=== PATIENT | female | born 1950 | race Caucasian/White ===

== ENCOUNTER 2016-11-19 11:10 | Emergency (ER) | payer OTHER ==
--- NOTE | 2016-11-19 12:32 | ED NURSING NOTES ---
Clinical Report - Nurses [facility] [address] [place] [address] 11/19/2016 11:12 [id number] Triage time 11:12 Nov 19 2016. Acuity: LEVEL 3. Chief Complaint: ALLERGIC REACTION. Alert. VEDA COMA SCORE: [place] Coma Scale: 15- eyes open spontaneously (4); best verbal response- oriented x 4 (5); best motor response- obeys commands (6). --11:30 Davie Chavira R.N. 11:15 11/19/16. BP: 170/94. HR: 76. RR: 16. O2 saturation: 97% on room air. Temp: 98.2 F. Pain level now: 0/10. --11:30 Davie Chavira R.N. Weight: 92 kg stated. Height/Length: 68 inches Per Patient. BMI: 30.8. --11:23 Davie Chavira R.N. Medications Citalopram Hydrobromide Oral (Tablet 20 mg) 1 tablet, daily. --11:23 Davie Chavira R.N. Allergies Dilaudid. Definite Severe (Rapid HR and chest pressure) --11:22 Davie Chavira R.N. Medication/allergy information source: the patient. --11:30 Davie Chavira R.N. History Arrived by EMS. Historian: EMS and patient. Unaccompanied. Primary physician (Pal). ( Given eye gtts in eye clinic and developed a reaction in 5-10 minutes. Eye gtts given were Phenylephrine Hydrochloride 2.5% (dilator) and Topicamide 1% (dilator) and Proparacaine Hydrochloride 0.5%. Eyes were flushed at the onset of symptoms.). This started just prior to arrival. ( Flushed, throat tightened). Treatment ANIMAL BIOLOGIST: (Benadryl 25mg, Decadron 8mg, Ranitidine 100mg and Zofran 4mg IVP given as soon as an IV was started.). PAST MEDICAL HX: Negative. The patient is post-menopausal. SOCIAL HX: Former smoker, end date 2002. No alcohol use or drug use. No infectious disease exposure. ABUSE ASSESSMENT: No report of abuse. FALL RISK ASSESSMENT: Fall risk assessment completed. No fall risk identified. NUTRITIONAL RISK ASSESSMENT: The nutritional risk assessment revealed no deficiencies. FUNCTIONAL ASSESSMENT: Functional assessment: no impairments noted. LEARNING NEEDS ASSESSMENT: The learning needs assessment revealed no barriers. SKIN INTEGRITY ASSESSMENT: Skin integrity risk assessment completed. No skin integrity risk identified. --11:30 Davie Chavira R.N. PROBLEMS: no known problems. ADDITIONAL SURGERIES: Breast Lumpectomy. Cholecystectomy. Knee Surgery. --11:26 Davie Chavira R.N. Interventions ID band on patient. To room. --11:30 Davie Chavira R.N. PHYSICAL ASSESSMENT To room via stretcher. GENERAL / NEURO / PSYCH: Alert. Oriented X 4. HEENT: Pupils equal, round and reactive to light. RESPIRATORY: Respirations not labored. CVS: Cardiac rhythm: (RRR). Capillary refill less than 2 seconds. Pulses within normal limits. GI / : Abdomen nontender. SKIN: Skin is intact, warm and dry. No skin rash. --11:31 Davie Chavira R.N. NURSING PROGRESS NOTES Reassurance given to the patient and patient's family. Patient identifiers checked. Call light placed in reach. Side rails up x 1. --11:32 Davie Chavira R.N. 11:11/19/2016 Started bag #1 1000 mL IV Fluids IV NS (Saline); at 1000 mL/hr over 60 minute(s) via site #1. Allergies verified and confirmed 5 rights. IV patency established. IV site checked: no pain, redness, or swelling. IV flushed thoroughly pre- and post-medication administration (IV started ANIMAL BIOLOGIST by EMS). --11:39 Davie Chavira R.N. 11:11/19/2016 Site #1 started via IV in the left hand with an 20g angiocath; one attempt. --11:38 Davie Chavira R.N. ( Visual acuity test done. Right eye read 20/40, left 20/40, and both together read 20/40 as well.). --11:49 Jameson Pretty, ER Tech1 12:23 11/19/16. BP: 138/77. HR: 77. RR: 16. O2 saturation: 96% on room air. Pain level now: 0/10. --12:24 Davie Chavira R.N. 12:37 11/19/2016 IV Fluids IV NS Discontinued: bag #1. Total amount infused: 750 mL. IV patency established. IV site checked: no pain, redness, or swelling. IV flushed thoroughly. --12:52 Tyshawn Delgado R.N. DISPOSITION / DISCHARGE 12:49 11/19/2016 Site #1 removed upon discharge. Catheter intact. --12:49 Tyshawn Delgado R.N. 12:49 11/19/16. Condition at departure: improved. The goals identified in the patient's plan of care were met. No learning barriers present. Discharge instructions provided and reviewed with proposal development manager and the patient. Reviewed warnings. Reviewed medication(s). Treatments reviewed. Patient verbalized understanding. Written instructions provided in [place]. The patient was discharged by the physician. She was discharged home and accompanied by proposal development manager. She left the Emergency Department ambulatory and via private vehicle. Retail Greeter driving. FALL RISK ASSESSMENT: Fall risk assessment completed. No fall risk identified. --12:49 Tyshawn Delgado R.N. 12:48 11/19/16. BP: 136/77. HR: 81. RR: 16. O2 saturation: 99%. Temp: 98 F (oral). --12:49 Tyshawn Delgado R.N. 12:49 11/19/16. Departure time: 12:49 Nov 19 2016. --12:49 Tyshawn Delgado R.N. Locked/Released at 11/19/2016 12:53 by Tyshawn Delgado R.N.
--- NOTE | 2016-11-19 12:32 | ED CLINICAL REPORT ---
Clinical Report - Physicians/Mid Levels [facility] [address] [place] [address] 11/19/2016 11:12 Patient: BIANCA RUBIO Time Seen: 11:41. Arrived- By private vehicle. Historian- patient ([facility] HISTORY OF PRESENT ILLNESS Chief Complaint: ALLERGIC REACTION. THROAT SWELLING. The patient has had itching, swelling and mild trouble swallowing. This started just prior to arrival and is still present but is improving. It was abrupt in onset. A cause has been identified. The patient received treatment from a physician prior to arrival including Benadryl and steroids (the patient was being seen at the eye clinic across the street. She was treated with proparacaine and tropicamide. She immediately developed a tightness in her throat and flushing diffusely. Dr. Schneider, an anesthesiologist who works in the surgery Center immediately evaluated the patient. He treated her with antihistamines and Decadron and thendirected her here to the emergency room.). REVIEW OF SYSTEMS No chills, fever, sweats, calf pain or chest pain. No cough, difficulty breathing, pedal edema, palpitations or abdominal pain. No constipation, diarrhea, nausea, vomiting or urinary problems. All systems otherwise negative, except as recorded above. PAST HISTORY Problems: no known problems. Additional Surgeries: Breast Lumpectomy. Cholecystectomy. Knee Surgery. Medications: Citalopram Hydrobromide Oral (Tablet 20 mg) 1 tablet, daily. Allergies: Dilaudid. Definite Severe (Rapid HR and chest pressure). SOCIAL HISTORY Smoker- current status unknown. No alcohol use or drug use. FAMILY HISTORY Denies family medical history. ADDITIONAL NOTES The nursing notes have been reviewed. PHYSICAL EXAM Vital Signs: Have been reviewed. Appearance: Alert. Head and Neck: Normal external inspection. Head: No facial angioedema. Eyes: Pupils equal, round and reactive to light. Funduscopic exam normal. Rt Eye: Pupil dilated and 8mm. Lt Eye: Pupil 4mm but not dilated. ENT: Pharynx normal. Voice normal. No muffled or hoarse voice. Neck: Neck supple. CVS: Normal heart rate and rhythm. Heart sounds normal. Respiratory: No respiratory distress. Breath sounds normal. Abdomen: Nontender. No organomegaly. Extremities: Normal external inspection. Extremities nontender. Skin: No urticaria. Neuro: No motor deficit. No sensory deficit. PROGRESS AND PROCEDURES Course of Care: Patient is stable. Patient/family counseled. Old medical records ordered. Old records unavailable. Disposition: Discharged. Condition: stable. CLINICAL IMPRESSION Allergic reaction (tropicamide or proparicaine). INSTRUCTIONS No driving or operating machinery while taking medication. Warnings: Further evaluation is necessary. GENERAL WARNINGS: Return or contact your physician immediately if your condition worsens or changes unexpectedly, if not improving as expected, or if other problems arise. OTC Medications: Benadryl (available over the counter): take according to label instructions. Follow-up: Follow up with your doctor in seven days. Call for an appointment. Follow up with an socket puller as scheduled. Understanding of the discharge instructions verbalized by patient. (Electronically signed by Gagan Fonseca MD 11/21/2016 3:14)
--- NOTE | 2016-11-19 12:32 | ED NURSING NOTES ---
Clinical Report - Nurses [facility] [address] [place] [address] 11/19/2016 11:12 [id number] Triage time 11:12 Nov 19 2016. Acuity: LEVEL 3. Chief Complaint: ALLERGIC REACTION. Alert. VEDA COMA SCORE: [place] Coma Scale: 15- eyes open spontaneously (4); best verbal response- oriented x 4 (5); best motor response- obeys commands (6). --11:30 Davie Chavira R.N. 11:15 11/19/16. BP: 170/94. HR: 76. RR: 16. O2 saturation: 97% on room air. Temp: 98.2 F. Pain level now: 0/10. --11:30 Davie Chavira R.N. Weight: 92 kg stated. Height/Length: 68 inches Per Patient. BMI: 30.8. --11:23 Davie Chavira R.N. Medications Citalopram Hydrobromide Oral (Tablet 20 mg) 1 tablet, daily. --11:23 Davie Chavira R.N. Allergies Dilaudid. Definite Severe (Rapid HR and chest pressure) --11:22 Davie Chavira R.N. Medication/allergy information source: the patient. --11:30 Davie Chavira R.N. History Arrived by EMS. Historian: EMS and patient. Unaccompanied. Primary physician (Pal). ( Given eye gtts in eye clinic and developed a reaction in 5-10 minutes. Eye gtts given were Phenylephrine Hydrochloride 2.5% (dilator) and Topicamide 1% (dilator) and Proparacaine Hydrochloride 0.5%. Eyes were flushed at the onset of symptoms.). This started just prior to arrival. ( Flushed, throat tightened). Treatment LEGAL EXECUTIVE: (Benadryl 25mg, Decadron 8mg, Ranitidine 100mg and Zofran 4mg IVP given as soon as an IV was started.). PAST MEDICAL HX: Negative. The patient is post-menopausal. SOCIAL HX: Former smoker, end date 2002. No alcohol use or drug use. No infectious disease exposure. ABUSE ASSESSMENT: No report of abuse. FALL RISK ASSESSMENT: Fall risk assessment completed. No fall risk identified. NUTRITIONAL RISK ASSESSMENT: The nutritional risk assessment revealed no deficiencies. FUNCTIONAL ASSESSMENT: Functional assessment: no impairments noted. LEARNING NEEDS ASSESSMENT: The learning needs assessment revealed no barriers. SKIN INTEGRITY ASSESSMENT: Skin integrity risk assessment completed. No skin integrity risk identified. --11:30 Davie Chavira R.N. PROBLEMS: no known problems. ADDITIONAL SURGERIES: Breast Lumpectomy. Cholecystectomy. Knee Surgery. --11:26 Davie Chavira R.N. Interventions ID band on patient. To room. --11:30 Davie Chavira R.N. PHYSICAL ASSESSMENT To room via stretcher. GENERAL / NEURO / PSYCH: Alert. Oriented X 4. HEENT: Pupils equal, round and reactive to light. RESPIRATORY: Respirations not labored. CVS: Cardiac rhythm: (RRR). Capillary refill less than 2 seconds. Pulses within normal limits. GI / : Abdomen nontender. SKIN: Skin is intact, warm and dry. No skin rash. --11:31 Davie Chavira R.N. NURSING PROGRESS NOTES Reassurance given to the patient and patient's family. Patient identifiers checked. Call light placed in reach. Side rails up x 1. --11:32 Davie Chavira R.N. 11:11/19/2016 Started bag #1 1000 mL IV Fluids IV NS (Saline); at 1000 mL/hr over 60 minute(s) via site #1. Allergies verified and confirmed 5 rights. IV patency established. IV site checked: no pain, redness, or swelling. IV flushed thoroughly pre- and post-medication administration (IV started LEGAL EXECUTIVE by EMS). --11:39 Davie Chavira R.N. 11:11/19/2016 Site #1 started via IV in the left hand with an 20g angiocath; one attempt. --11:38 Davie Chavira R.N. ( Visual acuity test done. Right eye read 20/40, left 20/40, and both together read 20/40 as well.). --11:49 Jameson Pretty, ER Tech1 12:23 11/19/16. BP: 138/77. HR: 77. RR: 16. O2 saturation: 96% on room air. Pain level now: 0/10. --12:24 Davie Chavira R.N. 12:37 11/19/2016 IV Fluids IV NS Discontinued: bag #1. Total amount infused: 750 mL. IV patency established. IV site checked: no pain, redness, or swelling. IV flushed thoroughly. --12:52 Tyshawn Delgado R.N. DISPOSITION / DISCHARGE 12:49 11/19/2016 Site #1 removed upon discharge. Catheter intact. --12:49 Tyshawn Delgado R.N. 12:49 11/19/16. Condition at departure: improved. The goals identified in the patient's plan of care were met. No learning barriers present. Discharge instructions provided and reviewed with larriman helper and the patient. Reviewed warnings. Reviewed medication(s). Treatments reviewed. Patient verbalized understanding. Written instructions provided in Romansh. The patient was discharged by the physician. She was discharged home and accompanied by larriman helper. She left the Emergency Department ambulatory and via private vehicle. Final Finisher driving. FALL RISK ASSESSMENT: Fall risk assessment completed. No fall risk identified. --12:49 Tyshawn Delgado R.N. 12:48 11/19/16. BP: 136/77. HR: 81. RR: 16. O2 saturation: 99%. Temp: 98 F (oral). --12:49 Tyshawn Delgado R.N. 12:49 11/19/16. Departure time: 12:49 Nov 19 2016. --12:49 Tyshawn Delgado R.N. Locked/Released at 11/19/2016 12:53 by Tyshawn Delgado R.N.
--- NOTE | 2016-11-19 12:32 | ED ORDER SUMMARY ---
..... Patient: BIANCA RUBIO OrderSheet [facility] VisitID: [id number] [place] [address] 65y, F Registration Date/Time: 11/19/2016 ORDER SHEET Weight: 92.0 kg (stated) Allergies: Dilaudid GENERAL ORDERS: Director Of Field Sales (Continuous) (Allergic Reaction) (11:35 11/19/2016 JRomanelli R.N. verbal order read back to Raudel BANERJEE) (11:36 JRomanelli R.N.) Oxygen (2 L/min) (NC) (11:36 11/19/2016 JRnick R.N. verbal order read back to Raudel BANERJEE) (11:36 JRomanelli R.N.) Visual Acuity (12:26 11/19/2016 JRomanelli R.N. per protocol) (12:26 JRomanelli R.N.) MEDICATION ORDERS: IV FLUIDS: IV NS : initial bolus none -, then 125 mL/hr (NOW) (11:35 11/19/2016 JRomanelli R.N. verbal order read back to Raudel BANERJEE) (11:39 JRomanelli R.N.) ORDER SHEET NOTES: [Electronically signed by Tyshawn Delgado R.N. (12:53 11/19/2016)] [Electronically signed by Gagan Fonseca MD (03:14 11/21/2016)] [Electronically locked/signed by Tyshawn Delgado R.N. (12:53 11/19/2016)]
--- NOTE | 2016-11-19 12:32 | ED CLINICAL REPORT ---
Clinical Report - Physicians/Mid Levels [facility] [address] [place] [address] 11/19/2016 11:12 Patient: BIANCA RUBIO Time Seen: 11:41. Arrived- By private vehicle. Historian- patient ([facility] HISTORY OF PRESENT ILLNESS Chief Complaint: ALLERGIC REACTION. THROAT SWELLING. The patient has had itching, swelling and mild trouble swallowing. This started just prior to arrival and is still present but is improving. It was abrupt in onset. A cause has been identified. The patient received treatment from a physician prior to arrival including Benadryl and steroids (the patient was being seen at the eye clinic across the street. She was treated with proparacaine and tropicamide. She immediately developed a tightness in her throat and flushing diffusely. Dr. Schneider, an anesthesiologist who works in the surgery Center immediately evaluated the patient. He treated her with antihistamines and Decadron and thendirected her here to the emergency room.). REVIEW OF SYSTEMS No chills, fever, sweats, calf pain or chest pain. No cough, difficulty breathing, pedal edema, palpitations or abdominal pain. No constipation, diarrhea, nausea, vomiting or urinary problems. All systems otherwise negative, except as recorded above. PAST HISTORY Problems: no known problems. Additional Surgeries: Breast Lumpectomy. Cholecystectomy. Knee Surgery. Medications: Citalopram Hydrobromide Oral (Tablet 20 mg) 1 tablet, daily. Allergies: Dilaudid. Definite Severe (Rapid HR and chest pressure). SOCIAL HISTORY Smoker- current status unknown. No alcohol use or drug use. FAMILY HISTORY Denies family medical history. ADDITIONAL NOTES The nursing notes have been reviewed. PHYSICAL EXAM Vital Signs: Have been reviewed. Appearance: Alert. Head and Neck: Normal external inspection. Head: No facial angioedema. Eyes: Pupils equal, round and reactive to light. Funduscopic exam normal. Rt Eye: Pupil dilated and 8mm. Lt Eye: Pupil 4mm but not dilated. ENT: Pharynx normal. Voice normal. No muffled or hoarse voice. Neck: Neck supple. CVS: Normal heart rate and rhythm. Heart sounds normal. Respiratory: No respiratory distress. Breath sounds normal. Abdomen: Nontender. No organomegaly. Extremities: Normal external inspection. Extremities nontender. Skin: No urticaria. Neuro: No motor deficit. No sensory deficit. PROGRESS AND PROCEDURES Course of Care: Patient is stable. Patient/family counseled. Old medical records ordered. Old records unavailable. Disposition: Discharged. Condition: stable. CLINICAL IMPRESSION Allergic reaction (tropicamide or proparicaine). INSTRUCTIONS No driving or operating machinery while taking medication. Warnings: Further evaluation is necessary. GENERAL WARNINGS: Return or contact your physician immediately if your condition worsens or changes unexpectedly, if not improving as expected, or if other problems arise. OTC Medications: Benadryl (available over the counter): take according to label instructions. Follow-up: Follow up with your doctor in seven days. Call for an appointment. Follow up with an patient care as scheduled. Understanding of the discharge instructions verbalized by patient. (Electronically signed by Gagan Fonseca MD 11/21/2016 3:14)
--- NOTE | 2016-11-19 12:32 | ED ORDER SUMMARY ---
..... Patient: BIANCA RUBIO OrderSheet [facility] VisitID: [id number] [place] [address] 65y, F Registration Date/Time: 11/19/2016 ORDER SHEET Weight: 92.0 kg (stated) Allergies: Dilaudid GENERAL ORDERS: Technology Applications Teacher (Continuous) (Allergic Reaction) (11:35 11/19/2016 JRomanelli R.N. verbal order read back to Raudel BANERJEE) (11:36 JRomanelli R.N.) Oxygen (2 L/min) (NC) (11:36 11/19/2016 JRnick R.N. verbal order read back to Raudel BANERJEE) (11:36 JRomanelli R.N.) Visual Acuity (12:26 11/19/2016 JRomanelli R.N. per protocol) (12:26 JRomanelli R.N.) MEDICATION ORDERS: IV FLUIDS: IV NS : initial bolus none -, then 125 mL/hr (NOW) (11:35 11/19/2016 JRomanelli R.N. verbal order read back to Raudel BANERJEE) (11:39 JRomanelli R.N.) ORDER SHEET NOTES: [Electronically signed by Tyshawn Delgado R.N. (12:53 11/19/2016)] [Electronically signed by Gagan Fonseca MD (03:14 11/21/2016)] [Electronically locked/signed by Tyshawn Delgado R.N. (12:53 11/19/2016)]
--- NOTE | 2016-11-21 03:15 | ED MED RECONCILIATION SUMMARY ---
Patient: BIANCA RUBIO Medication Reconciliation Report [facility] VisitID: [id number] [address] [place] [address] 65y, F Registration Date/Time: 11/19/2016 Weight: 92.0 kg Height/Length: 68 in. BMI: 30.8 ALLERGIES: Dilaudid The patient's Home Medications are listed below: THE FOLLOWING MEDICATIONS NEED TO BE RECONCILED: Citalopram Hydrobromide Oral (20 mg) 1 tablet, daily The source(s) of the original Home Medication information: patient The following Medications were given to the patient in the Emergency Department: IV NS IV Fluids bolus 0, then 1000 mL/hr, administered: 11/19/2016 11:22:00 AM The following Medications were prescribed to the patient: Benadryl (available over the counter): take according to label instructions. -- Gagan Fonseca MD
--- NOTE | 2016-11-21 03:15 | ED DISCHARGE INSTRUCTIONS ---
Patient: BIANCA RUBIO General Instructions [facility] VisitID: [id number] [place] [address] 65y, F Registration Date/Time: 11/19/2016 Allergic reaction (tropicamide or proparicaine). INSTRUCTIONS No driving or operating machinery while taking medication. Warnings: Further evaluation is necessary. GENERAL WARNINGS: Return or contact your physician immediately if your condition worsens or changes unexpectedly, if not improving as expected, or if other problems arise. OTC Medications: Benadryl (available over the counter): take according to label instructions. Follow-up: Follow up with your doctor in seven days. Call for an appointment. Follow up with an property handler as scheduled. Understanding of the discharge instructions verbalized by patient. ADDITIONAL INFORMATION Drug Reaction: Allergic You are having an allergic reaction to a drug you have taken. This causes an itchy rash and sometimes swelling of various parts of the body. It may also cause trouble swallowing or breathing. The rash may take a few hours or up to two weeks to go away. In the future, remember to tell your doctor about your allergy to this drug so that drugs of this type won't be used again. Home Care: 1) Throw the drug away and do not take it again. The next reaction may be much worse. 2) Avoid tight clothing and anything that heats up your skin (hot showers/baths, direct sunlight) since heat will make itching worse. 3) An ice pack (ice cubes in a plastic bag, wrapped in a towel) will relieve local areas of intense itching and redness. Lanacaine cream or Solarcaine spray (or other product containing "benzocaine") will reduce the itching. 4) Avoid scratching which may worsen the reaction, damage your skin and lead to an infection. 5) Oral Benadryl (diphenhydramine) is an antihistamine available at drug and grocery stores. Unless a prescription antihistamine was given, Benadryl may be used to reduce itching if large areas of the skin are involved. Use lower doses during the daytime and higher doses at bedtime since the drug may make you sleepy. [NOTE: Do not use Benadryl if you have glaucoma or if you are a man with trouble urinating due to an enlarged prostate.] Claritin (loratadine) is an antihistamine that causes less drowsiness and is a good alternative for daytime use. Follow Up with your doctor or this facility in the next two days if your symptoms do not continue to improve. Get Prompt Medical Attention if any of the following occur: -- Wheezing, shortness of breath or difficulty swallowing -- Increased swelling in the face, eyelids, mouth, lips, tongue or throat -- Dizziness, weakness or fainting Diphenhydramine Tannate Chewable tablet What is this medicine? DIPHENHYDRAMINE (dye fen JAMAR barrera) is an antihistamine. It is used to treat the symptoms of an allergic reaction. How should I use this medicine? Take this medicine by mouth. Chew it completely before swallowing. Follow the directions on the prescription label. Take your doses at regular intervals. Do not take your medicine more often than directed. Talk to your layboy operator regarding the use of this medicine in children. While this drug may be prescribed for children as young as 6 years old for selected conditions, precautions do apply. Patients over 65 years old may have a stronger reaction and need a smaller dose. What side effects may I notice from receiving this medicine? Side effects that you should report to your doctor or health healthcare economics manager as soon as possible: allergic reactions like skin rash, itching or hives, swelling of the face, lips, or tongue changes in vision confused, agitated, nervous irregular or fast heartbeat tremor trouble passing urine unusual bleeding or bruising unusually weak or tired Side effects that usually do not require medical attention (report to your doctor or health healthcare economics manager if they continue or are bothersome): constipation, diarrhea drowsy headache loss of appetite stomach upset, vomiting thick mucous What may interact with this medicine? Do not take this medicine with any of the following medications: MAOIs like Carbex, Eldepryl, Marplan, Nardil, and Parnate This medicine may also interact with the following medications: alcohol barbiturates, like phenobarbital medicines for bladder spasm like oxybutynin, tolterodine medicines for blood pressure medicines for depression, anxiety, or psychotic disturbances medicines for movement abnormalities or Parkinson's disease medicines for sleep other medicines for cold, cough or allergy some medicines for the stomach like chlordiazepoxide, dicyclomine What if I miss a dose? If you miss a dose, take it as soon as you can. If it is almost time for your next dose, take only that dose. Do not take double or extra doses. Where should I keep my medicine? Keep out of the reach of children. Store at room temperature between 15 and 30 degrees C (59 and 86 degrees F). Keep container closed tightly. Throw away any unused medicine after the expiration date. What should I tell my health care provider before I take this medicine? They need to know if you have any of these conditions: glaucoma high blood pressure heart disease liver disease lung or breathing disease, like asthma pain or difficulty passing urine phenylketonuria prostate trouble ulcers or other stomach problems an unusual or allergic reaction to diphenhydramine, sulfites, other medicines foods, dyes, or preservatives or trying to get breast-feeding What should I watch for while using this medicine? Visit your doctor or health healthcare economics manager for regular check ups. Tell your doctor or healthcare professional if your symptoms do not start to get better or if they get worse. Your mouth may get dry. Chewing sugarless gum or sucking hard candy, and drinking plenty of water may help. Contact your doctor if the problem does not go away or is severe. This medicine may cause dry eyes and blurred vision. If you wear contact lenses you may feel some discomfort. Lubricating drops may help. See your eye doctor if the problem does not go away or is severe. You may get drowsy or dizzy. Do not drive, use machinery, or do anything that needs mental alertness until you know how this medicine affects you. Do not stand or sit up quickly, especially if you are an older patient. This reduces the risk of dizzy or fainting spells. Alcohol may interfere with the effect of this medicine. Avoid alcoholic drinks. You have been given the following additional information: Allergic Reaction, Drug Diphenhydramine Tannate Chewable tablet No driving or operating machinery while taking medication. (Electronically signed by Gagan Fonseca MD 11/21/2016 3:14)
--- NOTE | 2016-11-21 03:15 | ED MED RECONCILIATION SUMMARY ---
Patient: BIANCA RUBIO Medication Reconciliation Report [facility] VisitID: [id number] [address] [place] [address] 65y, F Registration Date/Time: 11/19/2016 Weight: 92.0 kg Height/Length: 68 in. BMI: 30.8 ALLERGIES: Dilaudid The patient's Home Medications are listed below: THE FOLLOWING MEDICATIONS NEED TO BE RECONCILED: Citalopram Hydrobromide Oral (20 mg) 1 tablet, daily The source(s) of the original Home Medication information: patient The following Medications were given to the patient in the Emergency Department: IV NS IV Fluids bolus 0, then 1000 mL/hr, administered: 11/19/2016 11:22:00 AM The following Medications were prescribed to the patient: Benadryl (available over the counter): take according to label instructions. -- Gagan Fonseca MD
--- NOTE | 2016-11-21 03:15 | ED DISCHARGE INSTRUCTIONS ---
Patient: BIANCA RUBIO General Instructions [facility] VisitID: [id number] [place] [address] 65y, F Registration Date/Time: 11/19/2016 Allergic reaction (tropicamide or proparicaine). INSTRUCTIONS No driving or operating machinery while taking medication. Warnings: Further evaluation is necessary. GENERAL WARNINGS: Return or contact your physician immediately if your condition worsens or changes unexpectedly, if not improving as expected, or if other problems arise. OTC Medications: Benadryl (available over the counter): take according to label instructions. Follow-up: Follow up with your doctor in seven days. Call for an appointment. Follow up with an care transition manager as scheduled. Understanding of the discharge instructions verbalized by patient. ADDITIONAL INFORMATION Drug Reaction: Allergic You are having an allergic reaction to a drug you have taken. This causes an itchy rash and sometimes swelling of various parts of the body. It may also cause trouble swallowing or breathing. The rash may take a few hours or up to two weeks to go away. In the future, remember to tell your doctor about your allergy to this drug so that drugs of this type won't be used again. Home Care: 1) Throw the drug away and do not take it again. The next reaction may be much worse. 2) Avoid tight clothing and anything that heats up your skin (hot showers/baths, direct sunlight) since heat will make itching worse. 3) An ice pack (ice cubes in a plastic bag, wrapped in a towel) will relieve local areas of intense itching and redness. Lanacaine cream or Solarcaine spray (or other product containing "benzocaine") will reduce the itching. 4) Avoid scratching which may worsen the reaction, damage your skin and lead to an infection. 5) Oral Benadryl (diphenhydramine) is an antihistamine available at drug and grocery stores. Unless a prescription antihistamine was given, Benadryl may be used to reduce itching if large areas of the skin are involved. Use lower doses during the daytime and higher doses at bedtime since the drug may make you sleepy. [NOTE: Do not use Benadryl if you have glaucoma or if you are a man with trouble urinating due to an enlarged prostate.] Claritin (loratadine) is an antihistamine that causes less drowsiness and is a good alternative for daytime use. Follow Up with your doctor or this facility in the next two days if your symptoms do not continue to improve. Get Prompt Medical Attention if any of the following occur: -- Wheezing, shortness of breath or difficulty swallowing -- Increased swelling in the face, eyelids, mouth, lips, tongue or throat -- Dizziness, weakness or fainting Diphenhydramine Tannate Chewable tablet What is this medicine? DIPHENHYDRAMINE (dye fen JAMAR barrera) is an antihistamine. It is used to treat the symptoms of an allergic reaction. How should I use this medicine? Take this medicine by mouth. Chew it completely before swallowing. Follow the directions on the prescription label. Take your doses at regular intervals. Do not take your medicine more often than directed. Talk to your terminal worker regarding the use of this medicine in children. While this drug may be prescribed for children as young as 6 years old for selected conditions, precautions do apply. Patients over 65 years old may have a stronger reaction and need a smaller dose. What side effects may I notice from receiving this medicine? Side effects that you should report to your doctor or health wound care rn as soon as possible: allergic reactions like skin rash, itching or hives, swelling of the face, lips, or tongue changes in vision confused, agitated, nervous irregular or fast heartbeat tremor trouble passing urine unusual bleeding or bruising unusually weak or tired Side effects that usually do not require medical attention (report to your doctor or health wound care rn if they continue or are bothersome): constipation, diarrhea drowsy headache loss of appetite stomach upset, vomiting thick mucous What may interact with this medicine? Do not take this medicine with any of the following medications: MAOIs like Carbex, Eldepryl, Marplan, Nardil, and Parnate This medicine may also interact with the following medications: alcohol barbiturates, like phenobarbital medicines for bladder spasm like oxybutynin, tolterodine medicines for blood pressure medicines for depression, anxiety, or psychotic disturbances medicines for movement abnormalities or Parkinson's disease medicines for sleep other medicines for cold, cough or allergy some medicines for the stomach like chlordiazepoxide, dicyclomine What if I miss a dose? If you miss a dose, take it as soon as you can. If it is almost time for your next dose, take only that dose. Do not take double or extra doses. Where should I keep my medicine? Keep out of the reach of children. Store at room temperature between 15 and 30 degrees C (59 and 86 degrees F). Keep container closed tightly. Throw away any unused medicine after the expiration date. What should I tell my health care provider before I take this medicine? They need to know if you have any of these conditions: glaucoma high blood pressure heart disease liver disease lung or breathing disease, like asthma pain or difficulty passing urine phenylketonuria prostate trouble ulcers or other stomach problems an unusual or allergic reaction to diphenhydramine, sulfites, other medicines foods, dyes, or preservatives or trying to get breast-feeding What should I watch for while using this medicine? Visit your doctor or health wound care rn for regular check ups. Tell your doctor or healthcare professional if your symptoms do not start to get better or if they get worse. Your mouth may get dry. Chewing sugarless gum or sucking hard candy, and drinking plenty of water may help. Contact your doctor if the problem does not go away or is severe. This medicine may cause dry eyes and blurred vision. If you wear contact lenses you may feel some discomfort. Lubricating drops may help. See your eye doctor if the problem does not go away or is severe. You may get drowsy or dizzy. Do not drive, use machinery, or do anything that needs mental alertness until you know how this medicine affects you. Do not stand or sit up quickly, especially if you are an older patient. This reduces the risk of dizzy or fainting spells. Alcohol may interfere with the effect of this medicine. Avoid alcoholic drinks. You have been given the following additional information: Allergic Reaction, Drug Diphenhydramine Tannate Chewable tablet No driving or operating machinery while taking medication. (Electronically signed by Gagan Fonseca MD 11/21/2016 3:14)
--- NOTE | 2016-11-21 03:15 | ED MAR SUMMARY ---
..... Medication Administration Record [facility] [address] [place] [address] Patient: BIANCA RUBIO Visit ID: [id number] 65y, F Weight: 92.0 kg Height/Length: 68 in BMI: 30.8 ALLERGIES: Dilaudid Start 11:22 11/19/2016 Davie Chavira R.N., Stop 12:37 11/19/2016 Tyshawn Delgado R.N. Medication Administered: IV NS (SALINE), Dose: IV Fluids over 60 minute(s), Rate: 1000 mL/hr, Dispensed: 1000 mL bag, Site: #1. Medication Ordered: IV NS : initial bolus none -, then 125 mL/hr (NOW).
--- NOTE | 2016-11-21 03:15 | ED MAR SUMMARY ---
..... Medication Administration Record [facility] [address] [place] [address] Patient: BIANCA RUBIO Visit ID: [id number] 65y, F Weight: 92.0 kg Height/Length: 68 in BMI: 30.8 ALLERGIES: Dilaudid Start 11:22 11/19/2016 Davie Chavira R.N., Stop 12:37 11/19/2016 Tyshawn Delgado R.N. Medication Administered: IV NS (SALINE), Dose: IV Fluids over 60 minute(s), Rate: 1000 mL/hr, Dispensed: 1000 mL bag, Site: #1. Medication Ordered: IV NS : initial bolus none -, then 125 mL/hr (NOW).
== END 2016-11-19 12:49 | disposition home or self-care (01) ==
LOC: ED SRH 11:10
DX: T44.3X5A Adverse effect of other parasympatholytics [anticholinergics and antimuscarinics] and spasmolytics, initial encounter (principal); T41.3X5A Adverse effect of local anesthetics, initial encounter; R22.1 Localized swelling, mass and lump, neck; X58.XXXA Exposure to other specified factors, initial encounter; Z79.899 Other long term (current) drug therapy; Z88.5 Allergy status to narcotic agent; Z72.0 Tobacco use; Y93.89 Activity, other specified; Y99.9 Unspecified external cause status; Y92.531 Health care provider office as the place of occurrence of the external cause